=== PATIENT | male | born 1995 | race Caucasian/White ===

== ENCOUNTER 2017-12-13 09:34 | Emergency (ER) | payer OTHER, SELFPAY ==
[2017-12-13 09:35] VITALS: BP 129/78; PULSE 106; RESP 16; TEMP 36.5; O2SAT 98; BMI 97.2
--- NOTE | 2017-12-13 09:45 | ED.VISSUMM ---
- ER Visit Summary Date of Service: 12/13/17 Chief Complaint: Laceration History of Present Illness: The patient is a [address] Dennis. He reports that he was putting away a putty knife at [facility] when it fell and cut his right middle finger. He is a throbbing pain is 10 at 10 worsening a 10 currently. Is worsened by movement and relieved by rest. He denies any paresthesias. His tetanus is up-to-date. Physical Examination: Vitals: Stable. Afebrile. General: Well-nourished and well-developed. Head: Normocephalic atraumatic. Neck: Supple, no lymphadenopathy. No JVD. Nontender. Cardiovascular: Regular rate and rhythm. No murmurs. Respiratory: No respiratory distress. Clear to auscultation bilaterally. Abdominal: Soft, nontender, nondistended, normal bowel sounds. No guarding, rebound, or peritoneal signs. Back: Nontender. Extremities: 3 cm laceration on the lateral side of his right middle finger distal phalanx. No active bleeding. Neurovascular intact.. Skin: Normal color, no rash. Neurologic: Alert and oriented ?3. Cranial nerves II through XII are intact. Normal strength and sensation. Psych: Normal affect. Emergency Department Course and Treatment: Patient was given naproxen for his pain. His wound was anesthetized and repaired. He tolerated it well. Treatment Plan: He is instructed to keep the wound clean, dry, and covered. Follow-up his primary care physician in 10-14 days for suture removal. Return to the emergency department for any worsening symptoms. Disposition: To home in improved and stable condition. Impression: 1. Laceration right middle finger, 3 cm, repaired. Procedure note: Wound was cleansed with chlorhexidine soap. Anesthetized with 1% bupivacaine without epinephrine as a digital block. Copiously irrigated with normal saline. Wound was explored there is no foreign material present. It was closed with 4 simple interrupted 4-0 ethilon sutures. The patient tolerated it well. This note was generated with [employer] dictation software. It may contain incorrect words, spelling, and punctuation that were not noted in review of the chart prior to signing ED Disposition - Plan for ED Patient: Chief Complaint: Laceration Instructions: ED Laceration Hand Prescriptions: Naproxen [Naprosyn] 500 mg PO BID #14 tablet Referrals: Doctor,Your [STAFF PHYSICIAN] - 10-14 Days suture removal
[2017-12-13] MEDS: Naproxen 500 MG Tablet PO (09:50)
[2017-12-13] MEDS: Bupivacaine Mpf 0.5% 30 ML VIAL INFILT (11:20)
== END 2017-12-13 11:20 | disposition home or self-care (01) ==
PROVIDERS: Emergency Provider Emergency Medicine
DX: S61.212A Laceration without foreign body of right middle finger without damage to nail, initial encounter (principal); W26.0XXA Contact with knife, initial encounter; Y93.89 Activity, other specified; Y92.512 Supermarket, store or market as the place of occurrence of the external cause; Y99.9 Unspecified external cause status; J45.909 Unspecified asthma, uncomplicated; Z72.0 Tobacco use
CPT/HCPCS: 12002; 99284